=== PATIENT | female | born 1995 | race Caucasian/White ===

== ENCOUNTER 2021-12-15 13:35 | Outpatient (REF) | payer MEDICAID, SELFPAY ==
[2021-12-15 18:21] LABS: Basophils Absolute Auto 0.05 K/uL (0.00-0.30); Basophils Percent Auto 0.7 % (0.0-3.0); Eosinophils Absolute Auto 0.22 K/uL (0.00-0.50); Eosinophils Percent Auto 3.1 % (0.0-7.0); Hematocrit 42.1 % (33.0-51.0); Hemoglobin* 13.4 gm/dL (12.0-16.0); Immature Granulocytes Abs Auto 0.01 K/uL (0.00-0.30); Lymphocytes Absolute Auto 1.58 K/uL (0.90-2.90); Lymphocytes Percent Auto 22.3 % (20-44); Mean Corpuscular HGB Conc 32 gm/dL (32-36); Mean Corpuscular Hemoglobin 27 pg (26-34); Mean Corpuscular Volume 86 fL (80-100); Monocytes Percent Auto 7.1 % (0.0-11.0); Neutrophils Absolute Auto 4.72 K/uL (1.7-7.0); Neutrophils Percent Auto 66.7 % (42.0-72.0); Platelet Count* 476 K/uL (140-440); White Blood Count* 7.08 K/uL (4.50-11.00)
[2021-12-15 18:28] LABS: Slide Review Reflex No
[2021-12-15 18:36] LABS: Albumin* 4.3 g/dL (3.3-5.0); Chloride* 106 mmol/L (96-114); Potassium* 4.1 mmol/L (3.6-5.1); Sodium* 138 mmol/L (135-149)
[2021-12-15 18:38] LABS: Alanine Aminotransferase* 21 U/L (4-35); Alkaline Phosphatase* 95 U/L (40-150); Aspartate Amino Transferase* 22 U/L (12-35); Bilirubin Total* 0.5 mg/dL (0.1-1.5); Blood Urea Nitrogen* 11 mg/dL (5-24); Carbon Dioxide* 26 mmol/L (20-32); Creatinine* 0.6 mg/dL (0.5-1.5); Estimated Glomerular Filt Rate 128 ml/min; Glucose* 94 mg/dL (60-115)
[2021-12-15 18:39] LABS: Calcium* 9.2 mg/dL (8.4-10.6)
[2021-12-15 18:41] LABS: C Reactive Protein* 1.2 mg/dL (0.5-1.0)
[2021-12-15 19:13] LABS: Vitamin D 25 Hydroxy* 43 ng/mL (30-80)
[2021-12-15 19:26] LABS: Erythrocyte SedimentationRate* 25 mm/hr (2-20); Vitamin B12* 347 pg/mL (243-894)
== END 2021-12-15 13:36 | disposition home or self-care (01) ==
LOC: NPINS 13:35
PROVIDERS: Nurse Practitioner; PCP Nurse Practitioner Family
DX: K52.9 Noninfective gastroenteritis and colitis, unspecified (principal); R10.9 Unspecified abdominal pain; R11.0 Nausea; R11.2 Nausea with vomiting, unspecified
CPT/HCPCS: 80053; 82306; 82607; 82652; 85025; 85651; 86140

== ENCOUNTER 2022-07-16 14:43 | Outpatient (REF) | payer MEDICAID, SELFPAY ==
[2022-07-16 16:34] LABS: HCG Qualitative Serum* Negative (Negative)
[2022-07-16 16:35] LABS: Basophils Absolute Auto 0.03 K/uL (0.00-0.30); Basophils Percent Auto 0.5 % (0.0-3.0); Eosinophils Absolute Auto 0.23 K/uL (0.00-0.50); Eosinophils Percent Auto 3.7 % (0.0-7.0); Hematocrit 41.2 % (33.0-51.0); Hemoglobin* 13.5 gm/dL (12.0-16.0); Immature Granulocytes Abs Auto 0.01 K/uL (0.00-0.30); Immature Granulocytes Pct Auto 0.2 %; Lymphocytes Absolute Auto 1.88 K/uL (0.90-2.90); Lymphocytes Percent Auto 29.9 % (20-44); Mean Corpuscular HGB Conc 33 gm/dL (32-36); Mean Corpuscular Hemoglobin 28 pg (26-34); Mean Corpuscular Volume 86 fL (80-100); Monocytes Percent Auto 4.3 % (0.0-11.0); Neutrophils Absolute Auto 3.87 K/uL (1.7-7.0); Neutrophils Percent Auto 61.4 % (42.0-72.0); Platelet Count* 408 K/uL (140-440); RDW Coefficient of Variation % 12.2 % (11.5-15.5); White Blood Count* 6.29 K/uL (4.50-11.00)
[2022-07-16 16:43] LABS: Slide Review Reflex No
[2022-07-16 16:56] LABS: Blood Urea Nitrogen* 10 mg/dL (5-24); Creatinine* 0.6 mg/dL (0.5-1.5); Estimated Glomerular Filt Rate 127 ml/min
[2022-07-16 17:20] LABS: Appearance Urine Clear (Clear); Bilirubin Urine Negative (Negative); Blood Urine 1+ (Negative); Color Urine Yellow (Yellow); Glucose Urine Negative (Negative); Ketones Urine Negative (Negative); Leukocyte Esterase Urine Negative (Negative); Nitrite Urine Negative (Negative); Protein Urine Negative (Negative); Specific Gravity Urine 1.025 (1.000-1.030); Urobilinogen Urine 0.2 (0.2-1.0); pH Urine 7.5 (5.0-8.5)
[2022-07-16 18:25] LABS: RBC Urine 0-2 (0-2); Squamous Epithelial Cell Urine Few (None-Few); WBC Urine 0-2 (0-5)
[2022-07-18 17:22] LABS: Lithium, Serum or Plasma <0.2 mmol/L (0.5-1.2)
== END 2022-07-16 14:44 | disposition home or self-care (01) ==
LOC: NPINS 14:43
PROVIDERS: PCP Nurse Practitioner Family
DX: F60.3 Borderline personality disorder (principal)
CPT/HCPCS: 80178; 81003; 81015; 82565; 84520; 84703; 85025

== ENCOUNTER 2022-08-16 13:35 | Outpatient (REF) | payer OTHER, MEDICAID, SELFPAY ==
[2022-08-21 09:23] LABS: Lithium, Serum or Plasma 0.2 mmol/L (0.5-1.2)
== END 2022-08-16 13:36 | disposition home or self-care (01) ==
LOC: NPINS 13:35
PROVIDERS: PCP Nurse Practitioner Family; Visit Provider Registered Nurse Psychiatric/Mental Health
DX: F60.3 Borderline personality disorder (principal)
CPT/HCPCS: 80178

== ENCOUNTER 2023-08-15 12:30 | Outpatient (RCR) | payer OTHER, SELFPAY | END 2023-12-13 23:59 | disposition home or self-care (01) | PROVIDERS: PCP Nurse Practitioner Family; Visit Provider Family Medicine | DX: O26.899 Other specified pregnancy related conditions, unspecified trimester (principal); G56.00 Carpal tunnel syndrome, unspecified upper limb; Z51.89 Encounter for other specified aftercare | CPT/HCPCS: 97140; 97166; L3913 ==

== ENCOUNTER 2024-04-28 13:45 | Outpatient (RCR) | payer OTHER, SELFPAY | END 2024-08-06 09:14 | disposition home or self-care (01) | PROVIDERS: PCP Nurse Practitioner Family; Visit Provider Orthopaedic Surgery | DX: G56.03 Carpal tunnel syndrome, bilateral upper limbs (principal); Z98.890 Other specified postprocedural states; R53.1 Weakness; M25.631 Stiffness of right wrist, not elsewhere classified; Z51.89 Encounter for other specified aftercare | CPT/HCPCS: 97033; 97035; 97110; 97140; 97165; X5282 ==